=== PATIENT | female | born 1985 | race Two or more races ===

== ENCOUNTER 2022-06-21 17:29 | Emergency (ER) | payer OTHER ==
[~2022-06-21] VITALS: Ht 177.8 cm; Wt 134.3 kg
[2022-06-21] MEDS ORDERED: MORPHINE SULFATE INJ 2 MG/ML DISP.SYRIN IV ONE (18:30)
[2022-06-21] MEDS ORDERED: ONDANSETRON HCL/PF 4 MG/2 ML VIAL IVP ONE (18:30)
[2022-06-21] MEDS ORDERED: IV NS 0.9% 1,000 ML BAG IV ONE (18:30)
--- NOTE | 2022-06-21 18:30 | NUR ---
URINE SPECIMEN RECEIVED BY LAB
[2022-06-21] MEDS ORDERED: MORPHINE SULFATE INJ 4 MG/ML DISP.SYRIN ONE ×3 (18:35→23:45)
[2022-06-21] MEDS ORDERED: ONDANSETRON HCL/PF 4 MG/2 ML VIAL ONE ×2 (18:35→21:04)
[2022-06-21 18:37] LABS: BILIRUBIN,URINE MODERATE (NEGATIVE); COLOR,URINE YELLOW (YELLOW); LEUKOCYTE ESTERASE ,URINE NEGATIVE (NEGATIVE); NITRITE, URINE NEGATIVE (NEGATIVE); PH,URINE 6.5 (5.0-8.0); PROTEIN,URINE 30 mg/dl (NEGATIVE); UGLUCOSE NEGATIVE (NEGATIVE)
[2022-06-21 18:49] LABS: BACTERIA,URINE RARE /HPF (None Seen); MUCUS,URINE Few /LPF (None Seen); RBC,URINE 21-50 /HPF (0-2); WBC,URINE 0-2 /HPF (0-3)
[2022-06-21 19:36] LABS: ALBUMIN 2.9 g/dL (3.4-5.0); BILIRUBIN,DIRECT 0.2 mg/dL (0.0-0.2); BILIRUBIN,TOTAL 0.4 mg/dL (0.2-1.0); CALCIUM, SERUM 8.9 mg/dL (8.5-10.1); POTASSIUM 3.2 mmol/L (3.5-5.1); TOTAL PROTEIN, SERUM 7.5 g/dL (6.4-8.2)
[2022-06-21 19:43] LABS: CREATININE 0.9 mg/dL (0.6-1.3)
[2022-06-21 20:05] LABS: BASOPHILS % (AUTO) 0.2 % (0.0-2.0); EOSINOPHILS % (AUTO) 0.1 % (0.0-6.0); HEMATOCRIT 32 % (33-45); HEMOGLOBIN 10.3 g/dL (11.5-14.8); LYMPHOCYTES # (AUTO) 0.9 K/uL (0.8-4.8); LYMPHOCYTES % (AUTO) 8.4 % (20.0-44.0); MEAN CORPUSCULAR HGB CONC 32 g/dl (31.0-36.0); MEAN CORPUSCULAR VOLUME 79 fL (82-100); MONOCYTES % (AUTO) 9.3 % (2.0-12.0); NEUTROPHILS # (AUTO) 8.9 K/uL (1.8-8.9); PLATELET COUNT (AUTO) 420 K/uL (150-450); RED BLOOD CELL COUNT(AUTO) 4.03 MIL/uL (4.0-5.2); WHITE BLOOD COUNT (AUTO) 10.8 K/uL (4.3-11.0)
[2022-06-21] MEDS ORDERED: MORPHINE SULFATE INJ 10 MG/ML DISP.SYRIN IV ONE (21:30)
[2022-06-21] MEDS ORDERED: ONDANSETRON HCL/PF - ER 4 MG/2 ML VIAL IV ONE ×2 (21:30→23:30)
[2022-06-21] MEDS ORDERED: CT SWABBABLE VALVE TRANS SET 1 EA INFUS.SET MC ONE (22:08)
[2022-06-21] MEDS ORDERED: IOHEXOL-300 100 ML VIAL IV ONE (22:08)
[2022-06-21] MEDS ORDERED: IV NS 0.9% 250 ML IV ONE (22:08)
[2022-06-22] MEDS ORDERED: MORPHINE SULFATE INJ 10 MG/ML DISP.SYRIN IV ONE
[2022-06-22] MEDS ORDERED: RIVA10TA PO (00:10)
[2022-06-22] MEDS ORDERED: HYDR-3980 PO (00:10)
[2022-06-22] MEDS ORDERED: RIVAROXABAN 15 MG TABLET PO SCH (00:30)
[2022-06-22] MEDS ORDERED: RIVAROXABAN 15 MG TABLET ONE (00:34)
--- NOTE | 2022-06-22 00:43 | NUR ---
IV removed. Catheter intact and site benign. Pressure and 4x4 applied to site. No bleeding noted.
--- NOTE | 2022-06-22 00:44 | NUR ---
Patient discharged to home in stable condition. Written and verbal after care instructions given. Patient verbalizes understanding of instruction.
[2022-06-22 00:54] VITALS: BP 152/91
== END 2022-06-22 00:55 | disposition home or self-care (01) ==
LOC: ER 17:32
DX: I81 Portal vein thrombosis (principal); R10.11 Right upper quadrant pain; G43.909 Migraine, unspecified, not intractable, without status migrainosus; F32.A Depression, unspecified; F41.9 Anxiety disorder, unspecified; Z79.899 Other long term (current) drug therapy
CPT/HCPCS: 74177; 99284; 96374; 76705; 96361; 96375; 96376; 85025; 80048; 83690; 80076; 84703; 81001; 36415; J2270 ×3; J2405 ×2; J7030; J7050; Q9967

== ENCOUNTER 2024-05-26 19:10 | Emergency (ER) | payer OTHER ==
[~2024-05-26] VITALS: Ht 172.7 cm; Wt 115.7 kg
[~2024-05-26 19:10] MED LIST: HYDR-3980 PO; RIVA10TA PO
[2024-05-26 19:51] LABS: BASOPHILS % (AUTO) 0.5 % (0.0-2.0); EOSINOPHILS % (AUTO) 0.9 % (0.0-6.0); HEMATOCRIT 32 % (33-45); HEMOGLOBIN 10.1 g/dL (11.5-14.8); LYMPHOCYTES # (AUTO) 1.1 K/uL (0.8-4.8); LYMPHOCYTES % (AUTO) 22.4 % (20.0-44.0); MEAN CORPUSCULAR HEMOGLOBIN 23 PG (26.0-33.0); MEAN CORPUSCULAR HGB CONC 31 g/dl (31.0-36.0); MEAN CORPUSCULAR VOLUME 73 fL (82-100); MONOCYTES # (AUTO) 0.4 K/uL (0.1-1.30); MONOCYTES % (AUTO) 8.3 % (2.0-12.0); NEUTROPHILS # (AUTO) 3.4 K/uL (1.8-8.9); NEUTROPHILS % (AUTO) 67.9 % (43.0-81.0); PLATELET COUNT (AUTO) 173 K/uL (150-450); RED BLOOD CELL COUNT(AUTO) 4.43 MIL/uL (4.0-5.2); RED CELL DISTRIBUTION WIDTH 21.2 % (11.5-15.0)
[2024-05-26] MEDS: IV NS 0.9% 1,000 ML BAG IV ONE (19:54)
[2024-05-26 20:11] LABS: INR 1.06 (0.91-1.10); PARTIAL THROMBOPLASTIN TIME 24.5 SEC (24.3-34.3); PROTHROMBIN TIME 10.9 SECS (9.2-11.1)
[2024-05-26 20:17] LABS: ALBUMIN 3.9 g/dL (3.4-5.0); BILIRUBIN,DIRECT 0.1 mg/dL (0.0-0.2); BILIRUBIN,TOTAL 0.6 mg/dL (0.2-1.0); CALCIUM, SERUM 9.1 mg/dL (8.5-10.1); CREATININE 0.7 mg/dL (0.6-1.3); POTASSIUM 3.5 mmol/L (3.5-5.1); TOTAL PROTEIN, SERUM 7.6 g/dL (6.4-8.2)
[2024-05-26] MEDS ORDERED: IOHEXOL-350 100 ML VIAL IV ONE ×2 (20:46→21:37)
[2024-05-26] MEDS ORDERED: CT SWABBABLE VALVE TRANS SET 1 EA INFUS.SET MC ONE ×2 (20:47→21:37)
[2024-05-26] MEDS ORDERED: IV NS 0.9% 250 ML IV ONE ×2 (20:47→21:37)
[2024-05-26] MEDS ORDERED: ONDANSETRON HCL/PF 4 MG/2 ML VIAL ONE (20:54)
[2024-05-26] MEDS: ONDANSETRON HCL/PF 4 MG/2 ML VIAL IV ONE (20:57)
[2024-05-26 21:31] LABS: D-DIMER 0.33 mg/L(FEU (0.17-0.50)
[2024-05-26] MEDS ORDERED: DICY10CA37 PO (22:20)
[2024-05-26] MEDS ORDERED: ONDA4TAB11 PO (22:20)
[2024-05-26] MEDS: MORPHINE SULFATE INJ 10 MG/ML DISP.SYRIN IV ONE (22:30)
[2024-05-26] MEDS ORDERED: MORPHINE SULFATE INJ 4 MG/ML DISP.SYRIN ONE ×2 (23:10→23:39)
[2024-05-26] MEDS: ENOXAPARIN SODIUM 80 MG/0.8 ML DISP.SYRIN SQ ONE (23:30)
[2024-05-26] MEDS: MORPHINE SULFATE INJ 2 MG/ML DISP.SYRIN IV ONE (23:30)
[2024-05-26] MEDS ORDERED: ENOXAPARIN SODIUM 80 MG/0.8 ML DISP.SYRIN SQ ONE (23:38)
[2024-05-27 00:04] LABS: PREGNANCY TEST URINE QUAL NEGATIVE (NEGATIVE)
[2024-05-27 02:32] VITALS: BP 112/69; TEMP 98.6; O2SAT 98
== END 2024-05-27 02:33 | disposition short-term general hospital (02) ==
LOC: ER 19:16
DX: R10.84 Generalized abdominal pain (principal); R14.0 Abdominal distension (gaseous); I81 Portal vein thrombosis; G43.909 Migraine, unspecified, not intractable, without status migrainosus; F32.A Depression, unspecified; F41.9 Anxiety disorder, unspecified; Z87.42 Personal history of other diseases of the female genital tract
CPT/HCPCS: 99285; 74174; 96374; 96361; 96375; 93005; 85025; 80048; 83690; 80076; 85378; 84703; 36415; 85730; 96376; J2270 ×3; J2405; J7030; J7050; J1650; Q9967